=== PATIENT | female | born 1990 | race Caucasian/White ===

== ENCOUNTER 2023-03-14 08:17 | Outpatient (CLI) | payer BC, SELFPAY ==
--- NOTE | 2023-03-29 12:14 | WPDHOMESLEEP ---
Sleep Study - Home Unattended Date of Study: 03/14/23 Ordering Provider: Socorro Chang DO Interpreting Provider: Lashonda Abdalla MD [place] [facility] Type: Watch PAT Height: 1.65 m Weight: 51.256 kg Body Mass Index: 18.8 Neck Circumference (inches): 12.25 [place]: 13 Reason for Sleep Study Daytime fatigue, excessive daytime sleepiness Sleep History Ivette Teran is a 32-year-old female who feels tired throughout the day. An hour after being awake, she feels as if she needs to go back to sleep. Most days she takes 1 or 2 naps lasting between 20 and 30 minutes. She initially feels refreshed after a nap, but then is quickly tired again. At night, she has a difficult time falling asleep and staying asleep. She takes a low-dose Ambien some nights to fall asleep. She typically wakes up between 1 and 2 times during the night. Her sleep problems are moderately severe and a been present for longer than 2 years. she does not awaken from sleep feeling short of breath, does not awaken at night with heartburn, belching or coughing. She does not snore and other people do not tell her that she snores loudly. She rarely has difficulty sleeping with a cold. She does not wake up gasping for breath at night, is not told by others that she has breathing problems during sleep. She occasionally sweats excessively at night. She does not notice her heart pounding or beating irregularly at night. She rarely falls asleep during the day, never falls asleep involuntarily or while driving. She does not have loss of muscle tone due to strong emotion. She constantly has daytime difficulties at work due to excessive sleepiness. She does not feel paralyzed on waking or falling asleep. She occasionally has vivid dreamlike scenes upon awakening or falling asleep. She does not feel afraid to go to sleep. She occasionally has nightmares, occasionally remembers her dreams, occasionally has racing thoughts. She rarely feels sad or depressed. She occasionally has anxiety. She rarely has muscular tension. She does not notice parts her body jerking. She occasionally kicks at night. She does not have crawling or aching feelings in her legs. She denies having leg pain during the night. She does not have morning jaw pain. She rarely grinds her teeth at night. She is not bothered by pain during the day or awakened by pain at night. She does not wake up feeling stiff in the morning, does not awaken with sore achy muscles or pain in the neck and spine. She has insomnia, frequent concentration difficulties, headaches and depression. Normal bedtime is 9:00 p.m., falling asleep within 30-45 minutes, waking typically 1 or 2 times during the night for 30 minutes. While awake, she tries to return to sleep, she may read. Her normal wake time is 7:00 a.m.. On weekends, she may go to bed later, between 10:00 p.m. and 11:00 p.m. and she may wake later, 9:00 a.m.. She takes naps in the afternoon or evening. A short nap lasting 10-15 minutes may feel refreshing. Most of the time she feels adequate on waking but within a few hours she feels ready for a nap. She feels better in the morning compared to other times of day. Habits: Tobacco: Never smoker. Caffeine: 1-2 servings per day. Alcohol: none Recreational substances: none PMFSH Past Medical History Medical History (Updated 03/29/23 @ 14:50 by Lashonda Abdalla MD) Anxiety Insomnia Family History Family History Grandparent Cancer Diabetes mellitus Heart problem Mother Depression Anxiety Sibling Depression Anxiety Thyroid disorder Social History Social History Smoking status: Never smoker Alcohol intake: current Substance use: never Lack of Transportation: No Lack of Food: Never True Current Housing: I Have Housing Concerned About Future Housing: No Difficulty Pay
[2023-03-29 17:55] VITALS: BMI 18.8
== END 2023-03-15 09:06 | disposition home or self-care (01) ==
LOC: ANHCSM 08:18
PROVIDERS: PCP Family Medicine; Visit Provider Family Medicine
DX: G47.10 Hypersomnia, unspecified (principal)
CPT/HCPCS: 95800